=== PATIENT | female | born 1985 | race Caucasian/White ===

== ENCOUNTER → 2020-10-26 | Outpatient (REF) | payer OTHER ==
[2020-10-26 12:44] LABS: C REACTIVE PROTEIN QUANTITATIV < 0.30 MG/DL (0.00-0.30); RHEUMATOID FACTOR QUANT < 10.0 IU/ML (<15.0)
[2020-10-28 00:06] LABS: ANTI DOUBLE STRAND-DNA AB 13 IU/mL (0-9); ANTINUCLEAR ANTIBODIES DIRECT Positive (Negative); CYCLIC CITRULLINATED PEPTIDE 8 units (0-19); RNP ANTIBODIES <0.2 AI (0.0-0.9); SJOGREN'S ANTI SS-A <0.2 AI (0.0-0.9); SJOGREN'S ANTI SS-B 0.2 AI (0.0-0.9); SMITH ANTIBODIES <0.2 AI (0.0-0.9)
== END ==
LOC: M LAB REF 11:13
PROVIDERS: ATTEND Internal Medicine
DX: M25.50 Pain in unspecified joint (principal); M79.10 Myalgia, unspecified site

== ENCOUNTER → 2021-02-19 | Outpatient (REF) | payer OTHER ==
[2021-02-22 12:07] LABS: ANTINUCLEAR ANTIBODIES DIRECT Negative (Negative)
== END ==
LOC: M LAB REF 16:19
PROVIDERS: ATTEND Internal Medicine
DX: R76.8 Other specified abnormal immunological findings in serum (principal)

== ENCOUNTER → 2021-03-31 | Outpatient (REF) | payer BC | LOC: M SFHCWAGY 12:56 | PROVIDERS: ATTEND Advanced Practice Midwife | DX: Z12.4 Encounter for screening for malignant neoplasm of cervix (principal) | CPT/HCPCS: 87624; G0123 ==

== ENCOUNTER → 2021-10-27 | Outpatient (REF) | payer BC ==
[2021-10-28 13:09] LABS: ANTINUCLEAR ANTIBODIES DIRECT Negative (Negative)
== END ==
LOC: M LAB REF 12:24
PROVIDERS: ATTEND Internal Medicine
DX: R76.8 Other specified abnormal immunological findings in serum (principal); M25.50 Pain in unspecified joint

== ENCOUNTER → 2022-01-26 | Outpatient (CLI) | payer BC | LOC: M WUC 09:07 | PROVIDERS: ATTEND Internal Medicine | DX: S69.91XA Unspecified injury of right wrist, hand and finger(s), initial encounter (principal) ==

== ENCOUNTER → 2022-06-13 | Outpatient (REF) | payer BC | LOC: M LAB REF 16:19 | PROVIDERS: ATTEND Physician Assistant | DX: R30.0 Dysuria (principal); R10.30 Lower abdominal pain, unspecified ==

== ENCOUNTER → 2022-06-15 | Outpatient (REF) | payer BC | LOC: M LAB REF 16:19 | PROVIDERS: ATTEND Internal Medicine | DX: R10.32 Left lower quadrant pain (principal) ==

== ENCOUNTER → 2022-07-15 | Outpatient (REF) | payer BC ==
[2022-07-15 13:10] LABS: GC DNA AMPLIFICATION NEGATIVE (NEGATIVE)
== END ==
LOC: M PLALAB 10:36
PROVIDERS: ATTEND Advanced Practice Midwife
DX: Z01.419 Encounter for gynecological examination (general) (routine) without abnormal findings (principal); Z11.3 Encounter for screening for infections with a predominantly sexual mode of transmission

== ENCOUNTER → 2022-07-15 | Outpatient (CLI) | payer BC ==
[2022-07-15 13:35] LABS: FREE T4 1.11 NG/DL (0.89-1.76); THYROID STIMULATING HORMONE 1.664 uIU/ML (0.55-4.78)
[2022-07-15 13:37] LABS: PROLACTIN 6.79 NG/ML
[2022-07-15 14:01] LABS: HIV 1&2 SCREEN CENTAUR NEGATIVE (NEGATIVE)
[2022-07-15 14:47] LABS: HEPATITIS C VIRUS ABY INDEX 1.6 INDEX (<0.8)
== END ==
LOC: M PLALAB 10:48
PROVIDERS: ATTEND Advanced Practice Midwife
DX: Z01.419 Encounter for gynecological examination (general) (routine) without abnormal findings (principal); N64.52 Nipple discharge; Z11.3 Encounter for screening for infections with a predominantly sexual mode of transmission

== ENCOUNTER → 2022-08-22 | Outpatient (CLI) | payer BC | LOC: M WHC 12:24 | PROVIDERS: ATTEND Advanced Practice Midwife | DX: N60.02 Solitary cyst of left breast (principal); N64.52 Nipple discharge | CPT/HCPCS: 76642; 77066; G0279 ==

== ENCOUNTER → 2022-09-26 | Outpatient (REF) | payer BC | LOC: M SFHCDERM 17:32 | PROVIDERS: ATTEND Nurse Practitioner Family | DX: L82.1 Other seborrheic keratosis (principal) ==

== ENCOUNTER → 2023-09-06 | Outpatient (CLI) | payer BC | LOC: M WHC 09:52 | PROVIDERS: ATTEND Advanced Practice Midwife | DX: Z12.31 Encounter for screening mammogram for malignant neoplasm of breast (principal); Z80.3 Family history of malignant neoplasm of breast ==

== ENCOUNTER → 2023-09-06 | Outpatient (REF) | payer BC | LOC: M SFHCWAGY 13:33 | PROVIDERS: ATTEND Advanced Practice Midwife | DX: Z12.4 Encounter for screening for malignant neoplasm of cervix (principal); Z11.51 Encounter for screening for human papillomavirus (HPV); Z01.419 Encounter for gynecological examination (general) (routine) without abnormal findings | CPT/HCPCS: 87624; G0123 ==

== ENCOUNTER → 2023-11-07 | Outpatient (REF) | payer BC ==
[2023-11-08 12:08] LABS: ANTINUCLEAR ANTIBODIES DIRECT Negative (Negative)
== END ==
LOC: M LAB REF 12:32
PROVIDERS: ATTEND Internal Medicine
DX: M25.50 Pain in unspecified joint (principal)

== ENCOUNTER 2023-12-22 17:34 | Emergency (ER) | payer BC ==
[~2023-12-22] VITALS: Ht 162.6 cm; Wt 76.1 kg
[2023-12-22 17:34] VITALS: BP 133/80; TEMP 97; O2SAT 100
[2023-12-22] MEDS: KETOROLAC 30 MG/ML 1ML VIAL IV ONE (18:20)
[2023-12-22] MEDS: NS 1,000 ML IV ONE (18:20)
[2023-12-22] MEDS: diphenhydrAMINE 50MG/ML VIAL IV ONE (18:21)
[2023-12-22] MEDS: METOCLOPRAMIDE INJ 10MG/2ML VIAL IV ONE (18:21)
== END 2023-12-22 19:59 | disposition home or self-care (01) ==
LOC: M ED 17:34
DX: R51.9 Headache, unspecified (principal)
CPT/HCPCS: 70450; 84702; 96361; 96374; 96375; 99283; J1200; J1885; J2765

== ENCOUNTER → 2023-12-27 | Outpatient (CLI) | payer BC | LOC: M PLALAB 11:31 | PROVIDERS: ATTEND Advanced Practice Midwife | DX: N92.6 Irregular menstruation, unspecified (principal) ==

== ENCOUNTER → 2024-11-12 | Outpatient (REF) | payer BC | LOC: M LAB REF 12:06 | PROVIDERS: ATTEND Internal Medicine | DX: M25.50 Pain in unspecified joint (principal) ==